=== PATIENT | male | born 1965 | race African-American/Black ===

== ENCOUNTER 2016-11-29 13:38 | Emergency (ER) | payer OTHER, SELFPAY ==
[~2016-11-29] VITALS: Ht 185.4 cm; Wt 88.6 kg
[2016-11-29] MEDS ORDERED: BACT800T5 PO (17:53)
[2016-11-29] MEDS ORDERED: KETO2CR EXT (17:53)
[2016-11-29 18:10] VITALS: BP 116/63
== END 2016-11-29 18:00 | disposition home or self-care (01) ==
LOC: M ED 13:38
DX: L03.031 Cellulitis of right toe (principal); B35.3 Tinea pedis; Z72.0 Tobacco use; F12.10 Cannabis abuse, uncomplicated